=== PATIENT | female | born 1955 | race Caucasian/White ===

== ENCOUNTER 2018-01-31 11:12 | Day surgery (SDC) | payer BC, OTHER ==
[~2018-01-31 11:12] MED LIST: ACETAMINOPHEN 325 MG TAB PO; PHENYLEPHRINE HCL 10 % OPHTH. SOL 5ML OD; PROPARACAINE 0.5% OPHTH SOL 15ML OD
[2018-01-31] MEDS: LIDOCAINE 3.5 % 1ML OPHTH TOPICAL GEL OU (11:35)
[2018-01-31] MEDS: OFLOXACIN 0.3 % (OCUFLOX) OPTH SOL 5ML OD (11:40)
[2018-01-31] MEDS: CYCLOPENTOLATE 2% OPHTH SOLN 2ML BTL OD (11:40)
[2018-01-31] MEDS: TROPICAMIDE 1% OPHTH SOLN 2ML OD (11:40)
[2018-01-31] MEDS: PHENYLEPHRINE 2.5% OPHTH SOL 2ML OD (11:40)
[2018-01-31] MEDS: POVIDONE-IODINE 5% OPHTH PREP SOL 30ML As Ordered (12:52)
[2018-01-31] MEDS: BALANCED SALT IRRIGATION SOLUTION 500ML BAG (FOR OR EYE MACHINE) As Ordered (12:55)
[2018-01-31] MEDS: LIDOCAINE 1% SDV 5 ML VIAL As Ordered (12:55)
[2018-01-31] MEDS: HEALON DUET (HEALON 10MG/ML 0.55ML & HEALON ENDOCOAT 30MG/ML 0.85ML) As Ordered (12:55)
[2018-01-31] MEDS: CEFUROXIME 1MG/0.1ML INTRACAMERAL INJ As Ordered (12:56)
[2018-01-31] MEDS ORDERED: fentaNYL 100 MCG/2 ML INJECTION (J3010) As Ordered (13:05)
[2018-01-31] MEDS ORDERED: MIDAZOLAM INJ 2 MG/2 ML VIAL (J2250) As Ordered (13:05)
[2018-01-31] MEDS ORDERED: TRIMETHOBENZAMIDE 300 MG CAP PO (13:45)
[2018-01-31] MEDS: AcetaZOLAMIDE 500 MG ER CAP PO (13:58)
[2018-01-31] MEDS: KETOROLAC 0.5% OPHTH SOLN OD (13:58)
== END 2018-01-31 14:10 | disposition home or self-care (01) ==
LOC: M SDC 11:12
DX: H25.11 Age-related nuclear cataract, right eye (principal); E78.5 Hyperlipidemia, unspecified; Z79.899 Other long term (current) drug therapy; K21.9 Gastro-esophageal reflux disease without esophagitis; F41.9 Anxiety disorder, unspecified; F32.9 Major depressive disorder, single episode, unspecified
CPT/HCPCS: 66984

== ENCOUNTER → 2021-09-27 | Outpatient (CLI) | payer BC, OTHER, MEDICARE ==
[~2021-09-27] MED LIST changes: -ACETAMINOPHEN 325 MG TAB PO; +AMLO1TAB24; +METO1TAB32; -PHENYLEPHRINE HCL 10 % OPHTH. SOL 5ML OD; +PRAV40TA2 PO; -PROPARACAINE 0.5% OPHTH SOL 15ML OD; +VITA500046 PO; +ZOLO50TA PO
== END ==
LOC: M LABSMTC 10:32
PROVIDERS: ATTEND Anesthesiology
DX: Z20.828 Contact with and (suspected) exposure to other viral communicable diseases (principal); Z11.59 Encounter for screening for other viral diseases

== ENCOUNTER 2021-10-01 08:18 | Day surgery (SDC) | payer MEDICARE, BC, OTHER ==
[~2021-10-01] VITALS: Ht 162.6 cm; Wt 73.7 kg
[~2021-10-01 08:18] MED LIST changes: +NS 1,000 ML IV ONE
[2021-10-01 10:15] VITALS: BP 108/61
== END 2021-10-01 10:27 | disposition home or self-care (01) ==
LOC: M OPP 08:18
PROVIDERS: ATTEND Internal Medicine Gastroenterology
DX: R10.30 Lower abdominal pain, unspecified (principal); K64.8 Other hemorrhoids; Z98.0 Intestinal bypass and anastomosis status; I10 Essential (primary) hypertension; E78.00 Pure hypercholesterolemia, unspecified; Z79.899 Other long term (current) drug therapy; Z88.8 Allergy status to other drugs, medicaments and biological substances; Z80.41 Family history of malignant neoplasm of ovary